=== PATIENT | male | born 2000 | race Caucasian/White ===

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

== ENCOUNTER 2022-09-18 15:23 | Emergency (ER) | payer OTHER, MEDICAID, SELFPAY ==
[2022-09-18 15:28] VITALS: PULSE 69; RESP 22; TEMP 36.6; O2SAT 100
--- NOTE | 2022-09-18 15:52 | W.ED.GENAD ---
Discharge Plan Disposition Patient Disposition: Home Condition: Good Discharge Details Clinical Impression: Finger laceration Primary Care Provider: None,None ED Provider: Stormy Jackson Home Meds and New Rx's Prescriptions: Continued omeprazole magnesium 20 mg tablet,delayed release (DR/EC) 20 mg PO BID Qty: 60 0RF Patient Comments: not taking sucralfate [Carafate] 1 gram tablet 1 g PO QACHS Qty: 90 0RF Patient Comments: not taking Discharge Instructions Instructions: Finger Laceration (ED) Additional Instructions: Your x-rays are reassuring here today. No bone or ligament involvement. Please keep wound clean, dry, covered. Tylenol and ibuprofen as needed for discomfort. You may wash with running water and soap. May remove the bandage tomorrow. After that, you may apply a Band-Aid and the splint provided and continue with this for the next week. If you develop signs of infection such as fever/chills, increased pain, redness, warmth or other new/worsening symptoms to seek care urgently once again. Otherwise, please return in 10 to 12 days for reevaluation and suture removal. Discharge Data Discharge Date/Time-TO BE ENTERED AT DEPARTURE: 09/18/22 17:00 Medical Decision Making Patient is a 22-year-old [id number] male, brought in by his mother, with chief complaint of right pinky laceration. He reports that prior to arrival he was working on a car pulling off the front bumper when it slipped and cut his palmar side of his finger. He denies other injury at the time of the incident. Denies any numbness or tingling. On exam, patient appears nontoxic. He has a flap laceration to the middle third of the palmar side of the fifth digit on the right hand. Sensation is intact distally. Patient is now allowing full exam of the finger secondary to anxiety and pain. Prior to completing the ligamentous exam, plan to block the patient's is unable to get a more thorough assessment and hopefully calm down the patient's anxiety. Discussed risk, benefits and expected procedural steps associated with digital block. Patient voiced understanding and wished to proceed. Finger was blocked with 1% lidocaine plain with 5 cc. Tolerated procedure well. Will obtain x-ray to evaluate for any retained foreign body. Will update tetanus as this was completed over 10 years ago per mom. Tetanus updated. XRay without bony involvement or metal fragments. Anesthetic with good effect. Patient continues to be very anxious but is slightly better. We discussed treatments, plan to move forward with suture closure after risk/benefit discussion. Mom at bedside to help keep patient calm. Please see procedure note. Wound was copiously irrigated, explore to base in a bloodless field. No FB or debris noted. I was abl eto see the flexor tendon in very small window over the middle phalanx but this is intact. With the patient anesthetized, he is able to flex against resistance without evidence of tendinous disruption. The proximal aspect of hte flap is very superficial and this. Advised that this may ot be viable. Will tack this down and use as biologic dressing. Edges were able to be easiliy reappoximated without tension on the wound. Completed with finger tourniquet. Patient, his mom and I discussed care of the wound at length. Nonadhesvie, sterile dressing was applied. Dressing is bulky. He will remove in 24-48hrs and apply foam and metal splint as ths wound does cross PIP joint. Deeper aspect is over the middle phalanx. Along medial aspect, the wound does extend to the DIP. Discussed pain management. Strict return precautions given, in particular, symptoms of infection. All of their questions and concerns were addressed, they are in agreement with this plan. He will return in 10-12 days for reevaluation and suture removal. Have also asked care managment to assist in extablishing primary care. HPI General Date/Time Provider Initiated Documentation: 09/18/22 15:52. Limitations to Documentation: no limitations. Information obtained by: patient, family and RN notes reviewed. History of Present Illness 22 year old M presents to the emergency department with the chief complaint of laceration right pinky finger, described as severe, with intensity rated at 10. Quality is described as stabbing, and is localized to the right and upper extremity. Patient reports no radiation. Patient started experiencing this minute(s) and it has been constant. Immobilization improves symptom(s), Movement worsens symptoms . Patient notes no other symptoms.. Patient did receive the following treatments prior to arrival, none Related Data Home Medications Medication Instructions Recorded Confirmed omeprazole magnesium 20 mg 20 mg PO BID #60 tabs 11/29/20 12/04/20 tablet,delayed release sucralfate 1 gram tablet (Carafate) 1 g PO QACHS epigastric pain #90 11/29/20 12/04/20 tabs Previous Rx's Medication Instructions Recorded omeprazole magnesium 20 mg 20 mg PO BID #60 tabs 11/29/20 tablet,delayed release sucralfate 1 gram tablet (Carafate) 1 g PO QACHS epigastric pain #90 11/29/20 tabs Allergies Allergy/AdvReac Type Severity Reaction Status Date / Time No Known Allergies Allergy Unverified 09/18/22 15:35 General Stated Complaint: Laceration ALMA ROSA: 4 Review of Systems Constitutional Constitutional: Reports as per HPI, Denies chills and Denies fever(s) Musculoskeletal Musculoskeletal: Reports as per HPI Integumentary/Breasts Skin/Breast: Reports as per HPI Neurologic Neurologic: Reports as per HPI, Denies sensory deficit and Denies paresthesias PFSH All Active Problems (Updated 09/18/22 @ 16:48 by NEVAEH Nair) Finger laceration (Acute) Common cold (Acute) Excessive ear wax (Acute) Epigastric pain (Acute) Gastritis (Acute) Medical History Behavior disorder Left ankle sprain Viral meningitis age 9 years Surgical History History of esophagogastroduodenoscopy (EGD) (~11/2020) Family History Mother Mental disorder anxiety/depression Father No problems noted. Other Essential hypertension MGF Mental disorder several materal relatives Neoplasm MGGM, PGM, MGF- prostate Schizophrenia PGF Social History Smoking/Tobacco Use Status: Current-Occasional Tobacco Type: e-cigarettes Smoking risk assessment performed?: Yes Alcohol Intake: never Drug use: Occasionally Substance use type: marijuana Current gender identity: male Do you feel safe at home: Yes Additional Social history: Unable to assess privatley Exam Const General: cooperative, healthy appearing, uncomfortable, well developed and anxious (patient is profoundly anxious, tearful, yelling) Nutritional Appearance: average body habitus and well nourished Orientation: alert and awake Resp Effort & Inspection: normal respiratory effort, able to speak in complete sentences and no respiratory distress Cardio Rate: regular rate Rhythm: regular rhythm Skin Trauma: laceration Neuro General: patient alert and patient awake Cognition: normal cognition Speech: speech normal Gait: normal gait Sensory Exam: no sensory deficits noted Extrem Hand/finger images: 1. Flap laceration,. No significant bleeding. Patient is very anxious, unwilling to move finger. I was able to do short neuro exam but this was limited b/c of patient refusal to have me manipulate the finger. He does have light touch intact distally. No pain proximally. No wound noted on other fingers or palm. 2+ distal pulses Psych Appearance: grossly normal and well kempt Mental Status: mental status grossly normal Speech and Movement: speech and movement normal Course Vital Signs Vital signs: Vital Signs Temperature 36.6 C 09/18/22 15:28 Pulse 69 09/18/22 15:28 Respiratory Rate 22 09/18/22 15:28 Pulse Oximetry 100 09/18/22 15:28 Temperature 36.6 C 09/18/22 15:28 Temperature Source Oral 09/18/22 15:28 Pulse 69 09/18/22 15:28 Respiratory Rate 22 09/18/22 15:28 Respiratory Effort Normal 09/18/22 15:33 Blood Pressure Position Sitting 09/18/22 15:28 Pulse Oximetry 100 09/18/22 15:28 Oxygen Delivery Method Room Air 09/18/22 15:28 Oxygen Flow Rate 0 09/18/22 15:28 Pain Level 10 09/18/22 15:28 Procedures Laceration Laceration 1: Site: hand Side (If applicable): right Size (cm): 5 Description: flap Depth: simple, single layer Local Anesthetic: Lidocaine 1% Amount of anesthesia used (mL): 6 Pre-repair: wound explored, irrigated extensively and deep structures intact Skin layer closed with: nylon Size (cm): 5-0 Number of sutures: 7 Technique: simple, interrupted
--- NOTE | 2022-09-18 16:00 | DI.RAD_ITS ---
Exam(s) XR FINGER RT LITTLE EXAM: XR FINGER RT LITTLE CLINICAL HISTORY: laceration with metal. TECHNIQUE: 2D digital imaging was performed. Three views. COMPARISON: CR,XR XR HAND RT COMPLETE from 11/01/2021 FINDINGS: BONES: No acute fracture is present. No bony destructive lesion is seen. JOINTS: No dislocation present. SOFT TISSUE: Swelling. No foreign body IMPRESSION: Soft tissue swelling. DATA REPOSITORY: RADIATION DOSE DELIVERED:
[2022-09-18] MEDS: Ibuprofen 600 MG TAB PO (16:52)
[2022-09-18] MEDS: Acetaminophen 500 MG TAB 1000 MG PO (16:52)
--- NOTE | 2022-09-18 16:55 | NUR.NOTE ---
B.P requesting patient see a primary care provider for routine follow up. patient does not currently have a PCP. CLB
[2022-09-18 16:58] VITALS: PULSE 80; RESP 18; O2SAT 97
--- NOTE | 2022-09-20 12:54 | PDOC.ERCMACT ---
- If Service Date Differs Date of service: 09/20/22 Time of Service: 12:54 Care Management Activity Note Caryl is seen in the ED for a finger laceration. At the request of ED provider, ALEJANDRA coordinates a referral to GOLDIE Simon, of [facility], t-doc, to assist Caryl in obtaining a follow up appointment and in establishing care with a PCP. He has [employer] for insurance.
== END 2022-09-18 17:00 | disposition home or self-care (01) ==
LOC: ER 17:09
PROVIDERS: Emergency Provider Physician Assistant
DX: S61.216A Laceration without foreign body of right little finger without damage to nail, initial encounter (principal); S61.212A Laceration without foreign body of right middle finger without damage to nail, initial encounter; F41.9 Anxiety disorder, unspecified; Z23 Encounter for immunization; W26.8XXA Contact with other sharp object(s), not elsewhere classified, initial encounter
CPT/HCPCS: 12002; 90471; 99283; 73140

== ENCOUNTER 2023-03-12 19:04 | Emergency (ER) | payer OTHER, MEDICAID, SELFPAY ==
[2023-03-12] VITALS (60 sets, daily range): BP systolic 96–111; BP diastolic 52–69; PULSE 80–123; RESP 6–30; TEMP 35.6; O2SAT 84–100
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
[2023-03-12] MEDS: Omnipaque 350 MG/ML 100 ML BTL IJ (19:14)
[2023-03-12] MEDS: Normal Saline Flush 10 ML SYR IVP (19:15)
[2023-03-12] MEDS: Normal Saline - Diluent 50 ML VIAL IJ (19:15)
[2023-03-12 19:31] LABS: Abs Immature Grans 0.04 10^3/uL (0.0-0.06); Absolute Basophil Count 0.03 10^3/uL (0.0-0.2); Absolute Eosinophil Count 0.01 10^3/uL (0.0-0.7); Absolute Lymphocyte Count 2.34 10^3/uL (1.2-3.4); Absolute Monocyte Count 0.44 10^3/uL (0.1-0.8); Absolute Neutrophil Count 5.07 10^3/uL (1.2-6.7); Basophils % 0.4; Eosinophils % 0.1; HCT 42.1 % (40.0-50.0); HGB 14.7 g/dL (13.5-17.5); Immature Grans % 0.5; Lymphocytes % 29.5; MCH 30.8 pg (27.0-33.0); MCHC 34.9 % (32.0-36.0); MCV 88 fL (80-95); MPV 8.5 fL (8.0-11.0); Monocytes % 5.5; Platelet Count 337 10^3/uL (130-400); RBC 4.77 10^6/uL (4.36-5.78); RDW 12.3 % (11.8-14.1); RDW-SD 40.3 fL; WBC 7.93 10^3/uL (4.4-10.8)
[2023-03-12] MEDS: Ondansetron 4 MG/2 ML VIAL IVP (19:37)
[2023-03-12] MEDS: Midazolam 2 MG/2 ML VIAL 4 MG IVP ×2 (19:38→23:10)
[2023-03-12 19:54] LABS: ALT 17 U/L (16-63); AST 27 U/L (15-37); Albumin 4.5 g/dL (3.4-5.0); Alkaline Phosphatase 77 U/L (46-116); Amylase 62 U/L (25-115); BUN 13 mg/dL (7-18); Bilirubin, Total 0.5 mg/dL (0.2-1.0); CREATININE 1.3 mg/dL (0.70-1.30); Calcium 9.4 mg/dL (8.5-10.1); Chloride 103 mmol/L (98-107); Estimated GFR 80.65 (mL/min/1.73m2); Glucose 106 mg/dL (74-106); Lipase 63 U/L (16-77); Magnesium 2.3 mg/dL (1.8-2.4); Sodium 141 mmol/L (136-145); Total Protein 8.1 g/dL (6.4-8.2)
[2023-03-12 19:57] LABS: ETHANOL BLOOD 306.5 mg/dL (<10)
[2023-03-12 19:58] LABS: Potassium 2.9 mmol/L (3.5-5.1)
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
[2023-03-12] MEDS: fentaNYL 100 MCG/2 ML VIAL 50 MCG IVP (21:23)
[2023-03-12] MEDS: OLANZapine 10 MG VIAL 5 MG IM (23:00)
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
[2023-03-12] MEDS: Midazolam 2 MG/2 ML VIAL 4 MG IM (23:30)
[2023-03-13 00:05] VITALS: BP 110/69; PULSE 114; RESP 16; TEMP 35.6; O2SAT 100
[2023-03-13 00:44] VITALS: O2SAT 100
--- NOTE | 2023-03-13 00:52 | NUR.NOTE ---
Requested by ED staff to escort patient's mother to waiting room as she had become disruptive and was interfering with his care. Upon arrival to ED, observed mother standing outside room 2 yelling on her cell phone that the staff was not allowing her into the room to see her son. Requested that she wait in the waiting room, but she refused stating that she works at [employer] and this is her son. Explained to her that she needed to head out to the waiting room to allow the medical staff to provide care, and that the provider (who was in the room with the patient) would update her as soon as she was available. Mother stated she is the patient's guardian, but when asked if she is his legal guardian she responded, I am his mother. After several unheeded requests for mother to leave, explained that if she would not wait in the waiting room we would need to ask for police assistance. At this point the mother went out to the waiting room. While waiting for contact from the provider, she called back into the ER twice and to the supervisor continuous weld pipe [employer]'s phone once. All three times, she was assured that when the provider was available she would be updated. When provider was available and went to update mother, it was found that she had already left ED waiting room.
== END 2023-03-13 00:04 | disposition short-term general hospital (02) ==
PROVIDERS: Emergency Provider Student in an Organized Health Care Education/Training Program
DX: R41.82 Altered mental status, unspecified; S00.83XA Contusion of other part of head, initial encounter; S70.02XA Contusion of left hip, initial encounter; R45.1 Restlessness and agitation; F17.290 Nicotine dependence, other tobacco product, uncomplicated; V48.2XXA Person on outside of car injured in noncollision transport accident in nontraffic accident, initial encounter; Y92.410 Unspecified street and highway as the place of occurrence of the external cause
CPT/HCPCS: 36415; 74177; 80053; 80307; 83690; 96372; 96374; 96375; 96376; 99291; 70450; 70486; 71260; 72125; 80320; 81003; 82150; 83735; 85025; J2250; J2405; J3010; J3490

== ENCOUNTER 2023-08-16 04:43 | Emergency (ER) | payer OTHER, MEDICAID, SELFPAY ==
[2023-08-16 04:44] VITALS: BP 94/41; PULSE 62; RESP 18; TEMP 36.6; O2SAT 95
--- NOTE | 2023-08-16 05:15 | DI.RAD_ITS ---
Exam(s) XR PORTABLE CHEST AP EXAM: XR PORTABLE CHEST AP CLINICAL HISTORY: chest pain. TECHNIQUE: 2D digital imaging was performed. COMPARISON: CR CHEST 2 VIEWS PA,LAT from 11/29/2007 FINDINGS: Single AP portable view. Heart size is upper normal. The mediastinum is not widened. Lungs are clear. No infiltrates nor obvious pleural effusions. IMPRESSION: No acute pulmonary findings on this single AP portable view of the chest. DATA REPOSITORY: RADIATION DOSE DELIVERED:
--- NOTE | 2023-08-16 05:15 | RT.EKG_ITS ---
APPROVED REPORT Exam: Resting ECG Reason for Exam: vomiting Patient Location: E HR:72 bpm ECG Measurements Heart Rate 72 AXIS KY 233 P 86 QRSd 113 QRS 85 QT 409 T 56 QTc 447 Conclusion Sinus rhythm...normal P axis, V-rate 60- 99 Prolonged KY interval...KY >210, V-rate 50- 90 Physician: repolarization present, no stemi
[2023-08-16] MEDS: Ondansetron 4 MG/2 ML VIAL IVP (05:49)
[2023-08-16] MEDS: Normal Saline 1,000 ML 1000 ML IV (05:49)
[2023-08-16 05:58] LABS: Abs Immature Grans 0.03 10^3/uL (0.0-0.06); Absolute Basophil Count 0.03 10^3/uL (0.0-0.2); Absolute Eosinophil Count 0.05 10^3/uL (0.0-0.7); Absolute Lymphocyte Count 1.55 10^3/uL (1.2-3.4); Absolute Monocyte Count 0.84 10^3/uL (0.1-0.8); Absolute Neutrophil Count 7.75 10^3/uL (1.2-6.7); Basophils % 0.3; Eosinophils % 0.5; HCT 38.4 % (40.0-50.0); HGB 13.3 g/dL (13.5-17.5); Immature Grans % 0.3; Lactate 0.7 mmol/L (0.6-1.4); Lymphocytes % 15.1; MCH 30.2 pg (27.0-33.0); MCHC 34.6 % (32.0-36.0); MCV 87 fL (80-95); MPV 8.1 fL (8.0-11.0); Monocytes % 8.2; Neutrophils % 75.6; Platelet Count 279 10^3/uL (130-400); RDW 12.6 % (11.8-14.1); RDW-SD 40.5 fL; WBC 10.25 10^3/uL (4.4-10.8)
[2023-08-16 06:14] LABS: Lipase 25 U/L (16-77)
[2023-08-16 06:18] LABS: ALT 14 U/L (16-63); AST 11 U/L (15-37); Albumin 3.9 g/dL (3.4-5.0); Alkaline Phosphatase 70 U/L (46-116); Anion Gap 10.2 mmol/L (3-11); BUN 13 mg/dL (7-18); Bilirubin, Total 0.2 mg/dL (0.2-1.0); CO2 26.8 mmol/L (21.0-32.0); CREATININE 1.1 mg/dL (0.70-1.30); Calcium 9.3 mg/dL (8.5-10.1); Chloride 103 mmol/L (98-107); Estimated GFR 97.95 (mL/min/1.73m2); Glucose 123 mg/dL (74-106); Potassium 3.5 mmol/L (3.5-5.1); Sodium 140 mmol/L (136-145)
--- NOTE | 2023-08-16 06:32 | DI.VRAD_ITS ---
PROCEDURE INFORMATION: Exam: XR Chest Exam date and time: 08/16/2023 5:57 AM Age: 23 years old Clinical indication: Other: Chest pain TECHNIQUE: Imaging protocol: Radiologic exam of the chest. Views: 1 view. COMPARISON: No relevant prior studies are available for comparison. FINDINGS: Lungs: No focal consolidation seen. Pleural spaces: No large pleural effusion seen. Heart/Mediastinum: No cardiomegaly. Bones/joints: Grossly unremarkable. IMPRESSION: No acute findings to explain reported symptoms. Dictated and Authenticated by: Jennifer Vargas MD. Ordering:KRISTIAN Slaughter MD
[2023-08-16 06:39] LABS: D-Dimer 279 ng/mlFEU (<500)
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
[2023-08-16 07:24] VITALS: BP 103/82; PULSE 88; TEMP 37; O2SAT 98
[2023-08-16] MEDS: Ondansetron O.D.T. 4 MG TABEF, 3 TABS/BTL PO (07:24)
[2023-08-16 07:25] VITALS: BP 103/82; PULSE 88; TEMP 37; O2SAT 98
== END 2023-08-16 07:26 | disposition home or self-care (01) ==
LOC: ER 07:28
PROVIDERS: Emergency Provider Student in an Organized Health Care Education/Training Program
DX: R55 Syncope and collapse (principal); E86.0 Dehydration; R11.2 Nausea with vomiting, unspecified; R07.9 Chest pain, unspecified; R19.7 Diarrhea, unspecified
CPT/HCPCS: 80053; 83690; 93005; 96361; 96374; 96376; 99284; 71045; 83605; 85025; 85379; 93010; 99283; J2405

== ENCOUNTER 2024-10-26 17:28 | Emergency (ER) | payer OTHER, SELFPAY ==
[2024-10-26] VITALS (8 sets, daily range): BP systolic 112; BP diastolic 67–76; PULSE 61–80; RESP 12–21; TEMP 36.9; O2SAT 97–100
--- NOTE | 2024-10-26 17:30 | RT.EKG_ITS ---
APPROVED REPORT Exam: Resting ECG Reason for Exam: Chest Pain Patient Location: E HR:73 bpm ECG Measurements Heart Rate 73 AXIS SD 179 P 75 QRSd 100 QRS 89 QT 366 T 75 QTc 403 Conclusion Sinus rhythm...normal P axis, V-rate 60- 99 No Occlusion RI more pronounced T wave version aVL.
[2024-10-26 18:06] LABS: Abs Immature Grans 0.02 10^3/uL (0.0-0.06); Absolute Basophil Count 0.04 10^3/uL (0.0-0.2); Absolute Eosinophil Count 0.06 10^3/uL (0.0-0.7); Absolute Lymphocyte Count 2.23 10^3/uL (1.2-3.4); Absolute Neutrophil Count 3.89 10^3/uL (1.2-6.7); Basophils % 0.6 %; Eosinophils % 0.9 %; HGB 14.2 g/dL (13.5-17.5); Immature Grans % 0.3 %; Lymphocytes % 32.6 %; MCH 31.3 pg (27.0-33.0); MCHC 34.6 % (32.0-36.0); MCV 91 fL (80-95); MPV 8.6 fL (8.0-11.0); Monocytes % 8.8 %; Neutrophils % 56.8 %; Platelet Count 278 10^3/uL (130-400); RBC 4.53 10^6/uL (4.36-5.78); RDW 12.7 % (11.8-14.1); RDW-SD 42.2 fL; WBC 6.84 10^3/uL (4.4-10.8)
[2024-10-26 18:33] LABS: ALT 21 U/L (16-63); AST 17 U/L (15-37); Albumin 4.4 g/dL (3.4-5.0); Alkaline Phosphatase 72 U/L (46-116); Anion Gap 6.8 mmol/L (3-11); BUN 12 mg/dL (7-18); Bilirubin, Total 0.5 mg/dL (0.2-1.0); CO2 27.2 mmol/L (21.0-32.0); CREATININE 1.1 mg/dL (0.70-1.30); Calcium 9.9 mg/dL (8.5-10.1); Chloride 106 mmol/L (98-107); Estimated GFR 97.34 (mL/min/1.73m2); Glucose 94 mg/dL (74-106); Magnesium 2.2 mg/dL (1.8-2.4); Potassium 3.9 mmol/L (3.5-5.1); Sodium 140 mmol/L (136-145); TSH (W/Ref FT4) 0.87 uIU/mL (0.36-3.74); Total Protein 7.9 g/dL (6.4-8.2); Troponin I < 4 ng/L (<or=76)
--- NOTE | 2024-10-26 19:02 | DI.RAD_ITS ---
Exam(s) XR CHEST 2V PA LATERAL EXAM: XR CHEST 2V PA LATERAL CLINICAL HISTORY: chest pain TECHNIQUE: 2D digital imaging was performed. Two views. COMPARISON: CR,XR XR PORTABLE CHEST AP from 08/16/2023 FINDINGS: HEART: Normal size. Aorta: Not dilated. PULMONARY VASCULATURE: Normal. MEDIASTINUM: Unremarkable. LUNGS: Clear. PLEURAL SPACE: No pleural effusion or pneumothorax. BONE:Unremarkable for age. SOFT TISSUES: Unremarkable. IMPRESSION: No acute abnormality. DATA REPOSITORY: RADIATION DOSE DELIVERED:
--- NOTE | 2024-10-26 19:02 | NUR.NOTE ---
pt returned from xray and refused to be reconnected to the monitor.
[2024-10-26 19:15] LABS: *AMPHETAMINES SCREEN URINE Negative (Negative); *BARBITURATES SCREEN URINE Negative (Negative); *BENZODIAZEPINES SCREEN URINE Negative (Negative); Cannabinoids THC Positive (Negative); Cocaine Screen,Urine Negative (Negative); METHADONE URINE SCREEN Negative (Negative); OPIATES URINE SCREEN Negative (Negative)
[2024-10-26 19:17] LABS: Tricyclic Antidepressants Negative (Negative)
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
== END 2024-10-26 19:10 | disposition home or self-care (01) ==
PROVIDERS: Emergency Provider Physician Assistant
DX: R07.9 Chest pain, unspecified (principal); R55 Syncope and collapse; F41.9 Anxiety disorder, unspecified
CPT/HCPCS: 99285; 99284; 36415; 80053; 80307; 93005; 71046; 83735; 84443; 84484; 85025; 93010

== ENCOUNTER 2025-03-23 15:49 | Emergency (ER) | payer OTHER, SELFPAY ==
--- NOTE | 2025-03-23 15:45 | RT.EKG_ITS ---
APPROVED REPORT Exam: Resting ECG Reason for Exam: chest pain Patient Location: E HR:87 bpm ECG Measurements Heart Rate 87 AXIS MT 250 P 40 QRSd 100 QRS 77 QT 354 T 51 QTc 427 Conclusion Sinus rhythm, rate 87 MT interval prolonged at 250ms Borderline concave ST elevation II, III, aVF, without reciprocal changes. Stable compared to priors, likely LALITHA given age. No significant changes from priors
[2025-03-23 15:50] VITALS: BP 119/65; PULSE 82; RESP 18; TEMP 36.6; O2SAT 98
[2025-03-23 15:59] VITALS: RESP 16
[2025-03-23 16:09] VITALS: BP 117/60; PULSE 86; RESP 16; O2SAT 99
--- NOTE | 2025-03-23 16:15 | DI.RAD_ITS ---
Exam(s) XR CHEST 2V PA LATERAL EXAM: XR CHEST 2V PA LATERAL CLINICAL HISTORY: chest pain. TECHNIQUE: 2D digital imaging was performed. COMPARISON: CR XR CHEST 2V PA LATERAL from 10/26/2024 FINDINGS: 2 views: Heart size is normal. The mediastinum is not widened. Lungs are clear. No infiltrates nor pleural effusions. IMPRESSION: No acute pulmonary findings. DATA REPOSITORY: RADIATION DOSE DELIVERED:
[2025-03-23] MEDS: hydrOXYzine PAMOATE 25 MG CAP PO (16:36)
[2025-03-23] MEDS: Famotidine 20 MG TAB PO (16:37)
[2025-03-23] MEDS: Mylanta Suspension 30 ML CUP PO (16:37)
[2025-03-23 17:13] VITALS: BP 106/58; PULSE 77; RESP 16; O2SAT 99
--- NOTE | 2025-03-23 19:31 | ED.GENADUL_ITS ---
Discharge Plan Disposition Patient Disposition: Home Discharge Details Clinical Impression: Atypical chest pain, Uses marijuana Primary Care Provider: Unknown,Unknown ED Provider: Denice Maguire Home Meds and New Rx's Prescriptions: New hydroxyzine HCl 25 mg tablet 25 mg PO TID PRNQty: 10 0RF Discharge Instructions Additional Instructions: You may take more hydroxyzine as needed for anxiety, do not exceed 50 mg every 8 hours You may take Maalox or Mylanta or Pepcid [id number] for discomfort Please write try to stay away from high dose marijuana is much as possible as it can precipitate anxiety attacks Follow-up with director of marketing operations on Wednesday and return earlier should you have new or worsening complaints Discharge Data Discharge Date/Time-TO BE ENTERED AT DEPARTURE: 03/23/25 17:16 HPI General Date/Time Provider Initiated Documentation: 03/23/25 15:56 . HPI Narrative: This 24-year-old male presents with report of chest pain and anxiety after vaping a dab of marijuana. He states he took a break from marijuana for a few days and for what ever reason smoking again and really stressed to me. He is worried he is having a heart attack . He denies any calf pain or swelling. There is no family history of early cardiac disease. Patient denies any illicit substance use. He denies any nausea vomiting or shortness of breath. History of panic attacks this feels similarly. He describes a burning sensation in his chest from denies any Pain or swelling recent surgeries or long drives. Specifically denies any cocaine or crack use. Related Data Home Medications ?Medication ?Instructions ?Recorded ?Confirmed hydroxyzine HCl 25 mg tablet 25 mg PO TID PRN #10 tabs 03/23/25 Previous Rx's ?Medication ?Instructions ?Recorded hydroxyzine HCl 25 mg tablet 25 mg PO TID PRN #10 tabs 03/23/25 Allergies Allergy/AdvReac Type Severity Reaction Status Date / Time No Known Allergies Allergy Unverified 03/23/25 15:55 General Stated Complaint: Anxiety ALMA ROSA: 3 Exam Narrative Exam Narrative: Alert and oriented 24-year-old male is very anxious pupils are equal round reactive to light and accommodation reproducible chest pain on assessment no calf swelling or tenderness alert and oriented x 4 no rashes or lesions cardiac rate rhythm regular Course Vital Signs Vital signs: Vital Signs Temperature 36.6 C 03/23/25 15:50 Pulse 82 03/23/25 15:50 Respiratory Rate 18 03/23/25 15:50 Blood Pressure 119/65 03/23/25 15:50 Pulse Oximetry 98 03/23/25 15:50 Temperature 36.6 C 03/23/25 15:50 Pulse 77 03/23/25 17:13 Respiratory Rate 16 03/23/25 17:13 Respiratory Effort Normal 03/23/25 17:04 Respiratory Depth Normal 03/23/25 17:04 Respiratory Pattern Normal 03/23/25 17:04 Blood Pressure 106/58 L 03/23/25 17:13 Blood Pressure Mean 79 03/23/25 16:09 Pulse Oximetry 99 03/23/25 17:13 Oxygen Delivery Method Room Air 03/23/25 17:04 Oxygen Flow Rate 0 03/23/25 17:04 Pain Level 0 03/23/25 17:13 Medical Decision Making Results: EKG with early repolarization acute abnormality specifically no ischemia or injury, chest x-ray per radiology interpretation my review without acute abnormality Assessment and plan: Patient here with anxiety after smoking a dab of marijuana . EKG and chest x-ray reassuring. Given hydroxyzine and some Maalox and patient feels some improvement. I have very low clinical suspicion for ischemic or injurious event from a cardiovascular standpoint. Low suspicion clinically for pulmonary embolism. Patient encouraged to refrain from any marijuana use. Hydroxyzine prescription for home as needed return precautions reviewed and patient and mother expressed understanding [facility] All Active Problems (Updated 03/23/25 @ 17:08 by NEVAEH Melvin) Uses marijuana (Acute) Atypical chest pain (Acute) Pain in right foot (Acute) Tinea pedis (Acute) Common cold (Acute) Excessive ear wax (Acute) Epigastric pain (Acute) Gastritis (Acute) Medical History Left ankle sprain Viral meningitis age 9 years Behavior disorder Surgical History History of esophagogastroduodenoscopy (EGD) (~11/2020) Family History Mother Mental disorder anxiety/depression Father No problems noted. Other Essential hypertension MGF Mental disorder several materal relatives Neoplasm MGGM, PGM, MGF- prostate Schizophrenia PGF Social History Smoking/Tobacco Use Status: Current-Occasional Tobacco Type: cigarettes and e- cigarettes Smoking risk assessment performed?: Yes Alcohol Intake: never Drug use: Binges Substance use type: marijuana Details: smokes tobacco and marijuana together out of a bong Housing: house Current gender identity: male Do you feel safe at home: Yes Do you feel safe in your relationship?: Yes
== END 2025-03-23 17:16 | disposition home or self-care (01) ==
PROVIDERS: Emergency Provider Physician Assistant
DX: R07.89 Other chest pain (principal); F12.90 Cannabis use, unspecified, uncomplicated
CPT/HCPCS: 99283; 99284; 93005; 71046; 93010